=== PATIENT | female | born 1945 | race Caucasian/White ===

== ENCOUNTER 2017-04-30 16:00 | Emergency (ER) | payer MEDICARE, BC ==
[~2017-04-30] VITALS: Ht 167.6 cm; Wt 74.8 kg
--- NOTE | 2017-04-30 16:14 | NUR ---
PT IS IN ROOM #1B. DR SHAH EVALUATED THE PT.
[2017-04-30] MEDS ORDERED: METO-304 PO (16:16)
[2017-04-30] MEDS ORDERED: AMLO2.5T PO (16:16)
[2017-04-30] MEDS ORDERED: CHOL10005 PO (16:16)
[2017-04-30] MEDS ORDERED: LOVA20TA2 PO (16:16)
[2017-04-30] MEDS ORDERED: MAGN400C PO (16:16)
[2017-04-30] MEDS ORDERED: ASPI81TA31 PO (16:16)
[2017-04-30] MEDS ORDERED: MULT-70 PO (16:16)
[2017-04-30] MEDS ORDERED: VALS320T2 PO (16:16)
[2017-04-30] MEDS ORDERED: CLON0.1T14 PO (16:16)
[2017-04-30] MEDS: ASPIRIN 325 MG TABLET PO ONE (16:21)
[2017-04-30] MEDS: NITROGLYCERIN 0.4 MG/TAB BOTTLE SL ONE (16:21)
[2017-04-30] MEDS ORDERED: ASPIRIN 325 MG TABLET ONE (16:29)
[2017-04-30] MEDS ORDERED: NITROGLYCERIN 0.4 MG/TAB BOTTLE SL ONE (16:30)
[2017-04-30 16:36] LABS: BASOPHILS # (AUTO) 0.1 K/uL (0.0-8.0); BASOPHILS % (AUTO) 0.6 % (0.0-2.0); EOSINOPHILS # (AUTO) 0.1 K/uL (0.0-0.7); EOSINOPHILS % (AUTO) 1.6 % (0.0-7.0); HEMATOCRIT 37.9 % (37-47); HEMOGLOBIN 13.3 G/DL (12.0-16.0); LYMPHOCYTES # (AUTO) 1.5 K/UL (0.8-4.8); LYMPHOCYTES % (AUTO) 16.6 % (20.5-51.5); MEAN CORPUSCULAR HEMOGLOBIN 30.7 UUG (27.0-31.0); MEAN CORPUSCULAR HGB CONC 35 g/dL (32.0-37.0); MEAN CORPUSCULAR VOLUME 87.2 FL (81.0-99.0); MONOCYTES # (AUTO) 0.7 K/UL (0.1-1.30); MONOCYTES % (AUTO) 7.6 % (0.0-11.0); NEUTROPHILS # (AUTO) 6.5 K/UL (1.8-8.9); NEUTROPHILS % (AUTO) 73.6 % (38.5-71.5); PLATELET COUNT (AUTO) 193 K/UL (150-450); RED BLOOD CELL COUNT(AUTO) 4.35 MIL/UL (4.2-5.4); WHITE BLOOD COUNT (AUTO) 8.9 K/UL (4.0-11.2)
[2017-04-30 16:38] LABS: CARBON DIOXIDE 23 mmol/L (21-32); CHLORIDE 105 mmol/L (98-107); GLUCOSE 106 mg/dL (74-106); POTASSIUM 3.7 mmol/L (3.5-5.1); UREA NITROGEN, BLOOD 21 mg/dL (7-18)
[2017-04-30 16:50] LABS: ALANINE AMINOTRANSFERASE 23 U/L (14-59); ALKALINE PHOSPHATASE 86 U/L (50-136); ASPARTATE AMINOTRANSFERASE 23 U/L (15-37); BILIRUBIN,DIRECT 0.1 mg/dL (0.0-0.2); BILIRUBIN,TOTAL 0.7 mg/dL (0.2-1.0); TOTAL PROTEIN, SERUM 6.9 g/dL (6.4-8.2)
--- NOTE | 2017-04-30 19:30 | NUR ---
Received report from RUDDY Albarran. Assumed care of pt at this time. Pt resting in position of comfort for self. Resp even and unlabored. Pt denies cp, denies any chest pressure, denies sob. Pt c/o headache. Sts pain is tolerable and declines need for medication at this time. Pt resting in position of comfort for self.
--- NOTE | 2017-04-30 20:00 | NUR ---
PER REPORT [facility] DID NOT WANT ANY DRESSING/PROTECTION ON EYE
[2017-04-30] MEDS: ACETAMINOPHEN 325 MG TABLET PO ONE (20:47)
[2017-04-30] MEDS ORDERED: ACETAMINOPHEN ES 500 MG TABLET ONE (20:56)
--- NOTE | 2017-04-30 22:05 | NUR ---
Repeat troponin drawn by lab, awaiting results. Pt no complaints at this time. Resting in position of comfort for self.
--- NOTE | 2017-04-30 23:10 | NUR ---
IV removed. Catheter intact and site benign. Pressure and 4x4 gauze applied to site. No bleeding noted.
[2017-04-30 23:13] VITALS: BP 129/64
--- NOTE | 2017-04-30 23:14 | NUR ---
Patient discharged to home in stable conditon with son taking patient home. Written and verbal after care instructions given. Patient verbalizes understanding of instructions.
== END 2017-04-30 23:15 | disposition home or self-care (01) ==
LOC: ER 16:04
DX: R07.9 Chest pain, unspecified (principal); I10 Essential (primary) hypertension; Z79.82 Long term (current) use of aspirin; E78.5 Hyperlipidemia, unspecified; K21.9 Gastro-esophageal reflux disease without esophagitis; Z88.1 Allergy status to other antibiotic agents; Z88.2 Allergy status to sulfonamides
CPT/HCPCS: 36415; 70030-TC; 71010; 85025; 85730; 93005; A4663